=== PATIENT | female | born 1980 | race Caucasian/White ===

== ENCOUNTER → 2018-11-17 | Outpatient (CLI) | payer SELFPAY ==
--- NOTE | 2018-11-17 13:18 | Diagnostic Imaging Report ---
Exam: Pelvic ultrasound. History: Pelvic congestion syndrome, left adnexal mass Comparison: None Findings: Transabdominal and endovaginal sonographic evaluation of the pelvis. The uterus is anteverted in position, measuring 8.9 x 5.4 x 6.1 cm. Endometrial stripe thickness is 15 millimeters. The right ovary is not visualized due to overlying bowel gas. The left ovary measures 3.8 x 3.3 x 2.7 cm and appears unremarkable with normal blood flow. No left ovarian mass. No free fluid. Impression: No adnexal or uterine mass lesions. Endometrial stripe thickness of 15 mm can be within normal limits in the secretory phase of a premenopausal patient. Signed by: Jorge Kingsley MD on 11/17/2018 1:14 PM
== END ==
LOC: US 09:40 → EDSEX 09:40
PROVIDERS: ATTEND Internal Medicine Interventional Cardiology
DX: R19.09 Other intra-abdominal and pelvic swelling, mass and lump (principal); N94.89 Other specified conditions associated with female genital organs and menstrual cycle
CPT/HCPCS: 76830; 76856; 93976